=== PATIENT | male | born 1930 | race Caucasian/White ===

== ENCOUNTER 2017-01-22 15:38 | Inpatient (IN) | payer MEDICARE ==
[~2017-01-22] VITALS: Ht 182.9 cm; Wt 99.4 kg
--- NOTE | ~2017-01-22 | CR20 ---
[facility] A Service of [facility] RADIOLOGY TEXT RESULTS PATIENT: TENA UGALDE LOCATION: [facility] 331-01 : [birth year] UNIT #: [id number] AGE: [address]: Jerome Teague MD SEX: M ORDER DR: [id number] [facility] [address] [facility]. [place], [place] [address] [id number] I MR#: [id number] Acc #: [id number] NAME: TENA UGALDE. : 1930 SEX: M STUDY DATE/TIME: 01/22/2017 17:15 UNIT: CEDOF ROOM: 12504 STUDY DESCRIPTION: CR Ankle Min 3 Views Lt Attending Physician: Marla Serrano M.D. Ordering Physician: Ed Doctor [id number] [facility] Primary Care Physician: Merlin Dotson M.D. MEDICAL IMAGING REPORT This report is preliminary unless electronic signature is present EXAM 3 views left ankle. DATE 01/22/2017 HISTORY 86-year-old male with left ankle pain, swelling and deformity after falling today. FINDINGS There is severely comminuted fracture of the distal left tibial diametaphysis with posterior lateral angulation of the main fracture apex. There is also a mildly comminuted fracture of the distal left fibular diametaphysis with lateral angulation of the fracture apex. No ankle joint dislocation is seen. There is left lower extremity soft tissue swelling. Well-corticated chronic-appearing calcification is seen at the dorsum of the navicular bone. Base of fifth metatarsal appears intact. Multiple surgical rosaline are seen within the soft tissues of the left calf, presumably from vein graft harvesting, and calcific atherosclerotic changes are present. IMPRESSION 1. Comminuted fractures of the distal left tibia and fibular diametaphysis with lateral angulation of the fracture apex. Mild posterior angulation of the tibial fracture site. 2. No ankle joint dislocation. Dictated by... Cyndie Londono M.D. [facility] A Service [facility] RADIOLOGY TEXT RESULTS PATIENT: TENA UGALDE LOCATION: [facility] 331-01 : [birth year] UNIT #: [id number] AGE: [address]: Jerome Teague MD SEX: M ORDER DR: THIS IS AN ELECTRONICALLY VERIFIED REPORT Cyndie Londono M.D. at 01/23/2017 2:02 PM CHUCHO/brandon TD: 01/22/2017 23:54 JOB #: [id number] MEDICAL IMAGING REPORT Page 1 of 1 COPY
--- NOTE | ~2017-01-22 | OR ---
Unit #: [id number] #: [id number] Patient: TENA UGALDE [id number] [address] [address] [id number] I MR#: [id number] NAME: TENA UGALDE ROOM: 331 Date of Procedure: 01/23/2017 Admission Date: 01/22/2017 Surgeon: Luisa López M.D. : 1930 Attending Physician: Jerome Teague M.D. Primary Care Physician: Merlin Dotson M.D. OPERATIVE REPORT PREOPERATIVE DIAGNOSIS Left distal tibia and fibular fractures. POSTOPERATIVE DIAGNOSIS Left distal tibia and fibular fractures. DESCRIPTION OF PROCEDURE Closed reduction, short leg fiberglass cast application left lower extremity. ANESTHESIA None. COMPLICATIONS None. DESCRIPTION OF PROCEDURE With the patient supine at bedside and two nurses helping me, a closed reduction of the left leg was performed. A well-padded, well-molded short leg fiberglass cast was then applied with an appropriate three point mold. The patient tolerated the procedure well. We will check post reduction x-rays and make further plans. The patient most likely require rehabilitation placement since he lives alone and unable to weightbear on his left leg for a total of 2 months. Dictated by.Fauzia López M.D. RTH/modl TD: 01/23/2017 12:07 JOB #: [id number] Unit #: [id number] #: [id number] Patient: TENA UGALDE OPERATIVE REPORT Page 1 of 1 X Shayy López MD X PROCEDURE OPERATIVE NOTE
--- NOTE | ~2017-01-22 | CR72 ---
[facility] A Service of [facility] RADIOLOGY TEXT RESULTS PATIENT: TENA UGALDE LOCATION: [facility] : [birth year] UNIT #: [id number] AGE: [address]: MALACHI AVILEZ V SEX: M ORDER DR: [id number] [facility] [address] [facility] [place], [place] [address] [id number] I MR#: [id number] Acc #: [id number] NAME: TENA UGALDE : 1930 SEX: M STUDY DATE/TIME: 01/25/2017 13:27 UNIT: [address] ROOM: [facility] STUDY DESCRIPTION: CR Chest Single View Portable Attending Physician: Malachi Avilez M.D. Ordering Physician: Malachi Avilez M.D. Primary Care Physician: Merlin Dotson M.D. MEDICAL IMAGING REPORT This report is preliminary unless electronic signature is present EXAM AP portable chest 01/25/2017 HISTORY Shortness of breath since 01/24/2017. Previous history of stroke. Hypertension. Smoking history. COMPARISON AP portable chest 01/22/2017. FINDINGS Stable cardiac enlargement. Peripheral interstitial thickening is demonstrated in both lungs, greatest in the ipt-dk-cowcy lung zones, without significant change. No definite acute superimposed airspace disease is identified. No pleural effusion or pneumothorax is identified. No acute osseous abnormalities. IMPRESSION 1. Features of peripheral interstitial fibrosis in both lungs appear unchanged compared to the previous chest radiograph and correlated to the CT chest from 01/10/2016. 2. Stable cardiac enlargement. 3. No acute chest findings. 1. Dictated by... Cyndie Londono M.D. THIS IS AN ELECTRONICALLY VERIFIED REPORT Cyndie Londono M.D. at 01/27/2017 8:50 AM LLH/elsie [facility] A Service of [facility] RADIOLOGY TEXT RESULTS PATIENT: TENA UGALDE LOCATION: [facility] 331 : [birth year] UNIT #: [id number] AGE: [address]: MALACIH AVILEZ V SEX: M ORDER DR: TD: 01/25/2017 23:19 JOB #: [id number] MEDICAL IMAGING REPORT Page 1 of 1 COPY
--- NOTE | ~2017-01-22 | CR252 ---
[facility] A Service of [facility] RADIOLOGY TEXT RESULTS PATIENT: TENA UGALDE LOCATION: [facility] 331-01 : [birth year] UNIT #: [id number] AGE: [address]: Jerome Teague MD SEX: M ORDER DR: [id number] [facility] [address] [facility]. [place], [place] [address] [id number] I MR#: [id number] Acc #: [id number] NAME: TENA UGALDE : 1930 SEX: M STUDY DATE/TIME: 01/23/2017 8:01 UNIT: [address] ROOM: [facility] STUDY DESCRIPTION: CR Tibia and Fibula 2 Views Lt Attending Physician: Jerome Teague M.D. Ordering Physician: Jerome Teague M.D. Primary Care Physician: Merlin Dotson M.D. MEDICAL IMAGING REPORT This report is preliminary unless electronic signature is present EXAM Left tibia-fibula, 01/23 COMPARISON 01/20 INDICATION Pain for 1 day after falling out of a truck. Evaluate position of fractures in the fibula and tibia. FINDINGS Comparison to yesterday's study. AP and lateral views of the tibia and fibula were obtained. There is a plaster cast around the lower leg. There are distal shaft fractures involving the fibula and tibia. The tibial fracture is comminuted and there is mild lateral angulation. The fibular fracture is oblique and not comminuted. The tibial fracture is also somewhat dorsally angulated. In the proximal bones there appears to be a slightly displaced proximal fibular shaft fracture. IMPRESSION The amount of lateral angulation in the distal fibular and tibial fractures has been reduced slightly. The bones are in a cast now. There is also a proximal fibular fracture. Dictated by... Seth Gaspar M.D. THIS IS AN ELECTRONICALLY VERIFIED REPORT Seth Gaspar M.D. at 01/23/2017 12:13 PM MICHAEL/jorge l TD: 01/23/2017 11:25 JOB #: [id number] [facility] A Service of [facility] RADIOLOGY TEXT RESULTS PATIENT: ETNA UGALDE LOCATION: [facility] 331-01 : [birth year] UNIT #: [id number] AGE: [address]: Jerome Teague MD SEX: M ORDER DR: MEDICAL IMAGING REPORT Page 1 of 1 COPY
--- NOTE | ~2017-01-22 | CR72 ---
[facility] A Service of [facility] RADIOLOGY TEXT RESULTS PATIENT: TENA UGALDE LOCATION: [facility] : [birth year] UNIT #: [id number] AGE: [address]: Jerome Teague MD SEX: M ORDER DR: [id number] [facility] [address] [facility]. [place], [place] [address] [id number] I MR#: [id number] Acc #: [id number] NAME: TENA UGALDE. : 1930 SEX: M STUDY DATE/TIME: 01/22/2017 20:10 UNIT: [address] ROOM: [facility] STUDY DESCRIPTION: CR Chest Single View Portable Attending Physician: Marla Serrano M.D. Ordering Physician: Ed Doctor [id number] [facility] Primary Care Physician: Merlin Dotson M.D. MEDICAL IMAGING REPORT This report is preliminary unless electronic signature is present EXAM AP portable chest DATE 01/22/2017 HISTORY Preoperative evaluation for ORIF of left tibia and fibula. 47-year smoking history. COMPARISON AP portable chest 10/05/2006. FINDINGS There is moderate cardiac enlargement which appears increased since the 2006 study. Emphysematous changes are present. Suspected interstitial fibrotic changes in the bilateral fwf-ln-wvhyp lung zones, corresponding to CT chest from 01/20/2016. No dense lung consolidations are identified. No pleural effusion or pneumothorax is seen. Calcification is seen within the thoracic aorta. No displaced rib fractures identified. IMPRESSION 1. Peripheral interstitial thickening in the ses-vu-hymom lung zones thought to represent changes of interstitial fibrosis which are demonstrated to better advantage on the CT chest from 01/10/2016 2. Emphysema. 3. Moderate cardiomegaly, new or increased from 10/05/2006. 4. No acute chest findings. Dictated by... Cyndie Londono M.D. THIS IS AN ELECTRONICALLY VERIFIED REPORT [facility] A Service of [facility] RADIOLOGY TEXT RESULTS PATIENT: TENA UGALDE LOCATION: [facility] : [birth year] UNIT #: [id number] AGE: [address]: Jerome Teague MD SEX: M ORDER DR: Cyndie Londono M.D. at 01/23/2017 2:03 PM CHUCHO/brandon TD: 01/23/2017 03:58 JOB #: [id number] MEDICAL IMAGING REPORT Page 1 of 1 COPY
--- NOTE | ~2017-01-22 | CO ---
Unit #: [id number] #: [id number] Patient: TENA UGALDE [id number] [address] [place], [place] [address] [id number] I MR#: [id number] NAME: TENA UGALDE. ROOM: 331 Age: 86 Sex: M Admission Date: 01/22/2017 : 1930 Attending Physician: José Miguel Ball M.D. Primary Care Physician: Merlin Dotson M.D. Consultation Date: 01/23/2017 CONSULTATION REPORT CHIEF COMPLAINT Left leg injury. HISTORY OF PRESENT ILLNESS The patient is an 86-year-old male, who fell while getting out of his car yesterday sustaining a comminuted fracture of his left distal tibia and a fracture of his distal fibula. He has 18 degrees of extra-articular varus. Orthopedic consultation is requested. PAST MEDICAL HISTORY Remarkable for previous left leg arterial bypass graft for arterial peripheral vascular disease as well as stroke resulting in left-sided weakness. He also has a history of deep venous thrombosis, requiring Coumadin. Additional medical problems include hypothyroidism, congestive heart failure, coronary artery disease. HOME MEDICATIONS Coumadin, potassium, Lasix, Zoloft, Coreg, and Imdur. ALLERGIES Penicillin. PAST SURGICAL HISTORY Abdominal aortic aneurysm repair, left leg arterial bypass graft, inguinal hernia repair, hemorrhoidectomy, and cataracts. SOCIAL HISTORY The patient is a nonsmoker and nondrinker. He lives alone. PHYSICAL EXAMINATION This is a well-developed, well-nourished elderly male, who is alert and oriented. He is cooperative throughout the exam. Examination of the left leg shows the skin to be intact. He has mild swelling. He has an obvious varus deformity of the left lower extremity. He is point tender over the distal tibia and fibula. I am unable to palpate pulses. Sensation is intact. Motor exam is grossly intact. He does have some venous stasis changes. DIAGNOSTIC STUDIES IMAGING STUDIES: AP and lateral views of the left tibia and left ankle demonstrate 18 degrees of extra-articular varus. There was a comminuted fracture of the distal tibia, which is 4 cm above the ankle mortise. There was a butterfly fragment with marked comminution seen both an AP and lateral views. There is no significant translation on the knee x-ray. Unit #: [id number] #: [id number] Patient: TENA UGALDE There was also what appears to be an acute fracture of the proximal fibula as well. It is difficult to tell whether this is old or acute actually. IMPRESSION Comminuted left distal tibial and fibular fractures displaced in the varus. PLAN 1. Given the patient's multiple medical problems to include anticoagulation, coronary artery disease, peripheral vascular disease, requiring arterial bypass graft and left hemiparesis, I would recommend close treatment of this fracture. 2. We will therefore proceed with close reduction, short leg cast application at the bedside. The patient understands risks of this procedure to include possible further manipulation and even operative intervention, but we will try to avoid operative intervention at all cost. The patient will most likely require nonweightbearing status for 2 months and require cast immobilization for 2 months. Dictated byKem Tatum/royer TD: 01/23/2017 11:35 JOB #: [id number] CONSULTATION REPORT Page 1 of 1 X Shayy López MD X CONSULTATION REPORT
--- NOTE | ~2017-01-22 | DS ---
Unit #: [id number] #: [id number] Patient: TENA UGALDE [id number] [address] [place], [place] [address] [id number] I MR#: [id number] NAME: TENA UGALDE. ROOM: 331 Age: 86 Sex: M Admission Date: 01/22/2017 : 1930 Discharge Date: 01/26/2017 Attending Physician: José Migule Ball M.D. Primary Care Physician: Merlin Dotson M.D. 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 He was found to have a left distal tibial and fibula fracture and underwent closed reduction, short-leg fiberglass cast application to the left lower extremity. The patient is nonweightbearing to the left leg and planned to be transferred to a long term facility for short-term rehabilitation. He has a history significant for depression during his stay. His Zoloft was discontinued, and the patient was started on Wellbutrin 150 mg b.i.d. He has a history significant for DVT and has been on anticoagulation with Coumadin. His INR is currently subtherapeutic with INR of 1.6. The patient will continue with Lovenox until Coumadin is therapeutic. Cardiomyopathy - Continue Coreg and Imdur. 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 The patient was started on Benadryl and given a dose of steroids. Also, the patient's daughter felt that he may have a smell to his urine. Urinalysis was evaluated. Can recheck urine at short-term rehab facility. Currently no antibiotics started. Recent urinalysis done on the demonstrates no signs of infection. DISCHARGE MEDICATIONS 1. Colace 100 mg p.o. b.i.d. 2. Furosemide 20 mg p.o. b.i.d. 3. Humibid long acting 600 mg p.o. b.i.d. 4. Vitamin B complex tab 1 p.o. once daily. 5. Hydrocodone 5/325 mg p.o. t.i.d. p.r.n. 6. Calcium with vitamin D p.o. t.i.d. 7. Potassium chloride 10 mEq p.o. b.i.d. 8. Isosorbide 15 mg p.o. once daily. 9. Albuterol Mini-Neb b.i.d. 10. Lovenox 40 mg subcu once daily until INR therapeutic; after INR is above 2, can discontinue Lovenox. 11. Coumadin 7.5 mg on Mondays, Tuesdays, Wednesdays and . 12. Coumadin 3.37 mg on Fridays, Saturdays and Sundays. 13. Wellbutrin 150 mg p.o. b.i.d. Unit #: [id number] #: [id number] Patient: TENA UGALDE 14. Benadryl 25 mg p.o. b.i.d. p.r.n. itching. 15. Coreg 6.25 mg p.o. b.i.d. 16. Aleve 220 mg p.o. b.i.d. p.r.n. pain. DISCHARGE INSTRUCTIONS 1. The patient will be transferred to a short-term rehab facility for physical therapy. 2. He is nonweightbearing to the left leg. 3. He is to follow up as an outpatient with orthopedist, Dr. López. 4. The patient has allergic dermatitis, allergy to parabens, preservative in creams and should be avoided. 5. Discharge to long term facility. Dictated by... Kem Wright/park TD: 01/26/2017 09:53 JOB #: [id number] DISCHARGE SUMMARY Page 1 of 1 X X DISCHARGE SUMMARY
--- NOTE | ~2017-01-22 | CR17 ---
[facility] A Service of [facility] RADIOLOGY TEXT RESULTS PATIENT: TENA UGALDE LOCATION: [facility] 331- : [birth year] UNIT #: [id number] AGE: [address]: LOKESH AVILEZUJ V SEX: M ORDER DR: [id number] [facility] [address] [facility]. [place], [place] [address] [id number] I MR#: [id number] Acc #: [id number] NAME: TENA UGALDE. : 1930 SEX: M STUDY DATE/TIME: 01/23/2017 14:57 UNIT: [address] ROOM: [facility] STUDY DESCRIPTION: CR Ankle 2 Views Lt Attending Physician: Jerome Teague M.D. Ordering Physician: Jerome Teague M.D. Primary Care Physician: Merlin Dotson M.D. MEDICAL IMAGING REPORT This report is preliminary unless electronic signature is present EXAM Left ankle INDICATION Evaluate position of fracture after casting. Distal tibia fracture. FINDINGS AP and lateral views of the ankle were obtained. A fiberglass cast is present around the ankle. There is a comminuted fracture involving the distal third of the tibia with mild dorsal angulation and there is also a fracture through the distal tibial shaft which is slightly angulated as well. There has been some improvement in the alignment as compared with the previous study, particularly on the AP view. Dictated by... Seth Gaspar M.D. THIS IS AN ELECTRONICALLY VERIFIED REPORT Seth Gaspar M.D. at 01/24/2017 7:06 AM MICHAEL/jorge l TD: 01/23/2017 17:03 JOB #: [id number] MEDICAL IMAGING REPORT Page 1 of 1 COPY
--- NOTE | ~2017-01-22 | CR252 ---
[facility] A Service of [facility] RADIOLOGY TEXT RESULTS PATIENT: TENA UGALDE LOCATION: [facility] 331-01 : [birth year] UNIT #: [id number] AGE: [address]: Jerome Teague MD SEX: M ORDER DR: [id number] [facility] [address] [facility]. [place], [place] [address] [id number] I MR#: [id number] Acc #: [id number] NAME: TENA UGALDE. : 1930 SEX: M STUDY DATE/TIME: 01/22/2017 17:15 UNIT: CEDOF ROOM: [id number] STUDY DESCRIPTION: CR Tibia and Fibula 2 Views Lt Attending Physician: Marla Serrano M.D. Ordering Physician: Irving Lehman M.D. Primary Care Physician: Merlin Dotson M.D. MEDICAL IMAGING REPORT This report is preliminary unless electronic signature is present EXAMINATION Two views left tibia and fibula. DATE 01/22/2017 HISTORY Fell today with left tibia/fibula pain, swelling and deformity. FINDINGS There is a severely comminuted fracture of the distal left tibial diametaphysis with mild posterior and lateral angulation of the fracture apex. The proximal to mid tibial shaft appears intact, the knee joint maintains satisfactory alignment. There is a comminuted fracture of the distal left fibula diametaphysis with lateral angulation of the fracture apex. There is an obliquely oriented fracture of the proximal left fibular diametaphysis. Presumed vein graft harvesting surgical clips in place with vascular calcifications noted. Osteopenic changes are present. IMPRESSION 1. Severely comminuted fracture of the distal left tibial diametaphysis with posterior and lateral angulation of the apex. 2. Comminuted fracture of the distal left fibular diametaphysis with lateral angulation of the apex. 3. Obliquely origin minimally-displaced fracture of the proximal left fibular diametaphysis. 4. Knee and ankle joints maintain satisfactory alignment. No dislocation. [facility] A Service [facility] RADIOLOGY TEXT RESULTS PATIENT: TENA UGALDE LOCATION: [facility] 331-01 : [birth year] UNIT #: [id number] AGE: [address]: Jerome Teague MD SEX: M ORDER DR: Dictated by... Cyndie Londono M.D. THIS IS AN ELECTRONICALLY VERIFIED REPORT Cyndie Londono M.D. at 01/23/2017 2:02 PM CHUCHO/edwina TD: 01/22/2017 23:53 JOB #: [id number] MEDICAL IMAGING REPORT Page 1 of 1 COPY
--- NOTE | ~2017-01-22 | HP ---
Unit #: [id number] #: [id number] Patient: TENA UGALDE [id number] [place], [place] [address] [id number] I MR#: [id number] NAME: TENA UGALDE ROOM: 331 Age: 86 Sex: M Admission Date: 01/22/2017 : 1930 Attending Physician: Jerome Teague M.D. Primary Care Physician: Merlin Dotson M.D. HISTORY AND PHYSICAL CHIEF COMPLAINT Fall, left ankle. HISTORY OF PRESENT ILLNESS The patient is an 86-year-old male with past medical history of hypertension, hyperlipidemia, coronary artery disease, CHF, DVT, chronic anticoagulation, abdominal aortic aneurysm and peripheral vascular disease who presented to the emergency department for evaluation of the above. The patient states that he was in his usual state of health until the day of admission when he was getting out of his truck and his foot and ankle got caught in the truck. He fell onto his left lower extremity. He experienced the immediate onset of left ankle pain. He was brought to the emergency department for evaluation and further treatment. The patient denies any chest pain. No palpitations. No fever. No cough or cold symptoms. No vomiting or diarrhea. He states that he has been taking all of his medications as prescribed. He has gained some weight over the past several months since moving into [facility]. Family attributes the weight gain to no longer having to cook for himself. The patient had a cardiac catheterization in 2011 at [facility]. He had a stress test prior to that time. He sees Dr. Bell as an outpatient but has not seen him for over a year. In the emergency department initial pulse and blood pressure were 72 and 131/60 respectively. X-rays show fractures of the left distal tibia and fibula. He is being admitted to [facility] for evaluation and further treatment. PAST MEDICAL HISTORY 1. Admission to [facility] January 08 through January 11, 2016 for rhabdomyolysis and fall. 2. Cerebrovascular accident with residual left-sided weakness. 3. Congestive heart failure with unknown ejection fraction, followed by Dr. Bell. 4. Coronary artery disease. 5. Hypertension. 6. Hyperlipidemia. 7. History of DVT. 8. Chronic anticoagulation with Coumadin. 9. Hypothyroidism. 10. Abdominal aortic aneurysm status post repair. 11. Peripheral vascular disease status post lower extremity bypass. Unit #: [id number] #: [id number] Patient: TENA UGALDE PAST SURGICAL HISTORY 1. Cardiac catheterization in 2011 (no records). 2. Lower extremity bypass. 3. Abdominal aortic aneurysm repair. 4. Hemorrhoid surgery. 5. Cataract surgery. 6. Bilateral inguinal hernia repair. SOCIAL HISTORY The patient lives at [facility]. There is no tobacco or alcohol use. He typically is in, what sounds like, a scooter. He still drives. CODE STATUS The patient's code status is a [id number]-[id number]. FAMILY HISTORY Noncontributory secondary to age. ALLERGIES Penicillin, iodine, IV dye. HOME MEDICATIONS Potassium, Lasix, Coumadin, carvedilol, Zoloft, Imdur, levothyroxine, Lipitor, Colace. Home medications will need to be reviewed and verified. REVIEW OF SYSTEMS A complete review of systems is negative except as indicated in the HPI. The patient states that his INR was last checked on and was 1.7. His dose was increased for one day and then back to normal. PHYSICAL EXAMINATION VITAL SIGNS: Temperature is 98.2, pulse 72, respirations 18, blood pressure 131/60, oxygen saturation 90% on room air. GENERAL: The patient is a male who is awake and alert, in no acute distress. HEENT: The head is atraumatic. Mucous membranes are moist. NECK: Supple. Trachea is midline. CARDIOVASCULAR: Regular rate and rhythm. RESPIRATORY: Lungs are clear to auscultation bilaterally with no increased work of breathing. ABDOMEN: Soft, nontender with bowel sounds present in all 4 quadrants. EXTREMITIES: The patient does have 1+ edema of bilateral lower extremities. Hyperpigmentation is also noted consistent with chronic venous stasis. There is an ice pack about the left distal leg. He is tender in this region. NEUROLOGIC: The patient is awake and alert. He follows commands. He is hard of hearing. PSYCHIATRIC: Mood and affect are normal. The patient is cooperative. SKIN: Skin of examined areas is warm and dry. DIAGNOSTIC TESTS LABORATORY: Labs are all pending currently. IMAGING: Left ankle x-ray shows fractures involving the distal tibia and fibula. ASSESSMENT Unit #: [id number] #: [id number] Patient: TENA UGALDE 1. The patient is an 86-year-old male with fracture of the left tibia and fibula. The patient's revised Michelle Cardiac Risk Index is consistent with at least a 5.4% rate of cardiac , nonfatal myocardial infarction, nonfatal cardiac arrest based on history of heart failure, ischemic heart disease and cerebrovascular disease. Labs are pending. 2. Status post fall. The patient denies loss of consciousness. He denies hitting his head. 3. Hypertension. 4. Hyperlipidemia. 5. Coronary artery disease. 6. Congestive heart failure with unknown ejection fraction. 7. History of DVT. 8. Chronic anticoagulation with Coumadin. 9. Abdominal aortic aneurysm status post repair. 10. Peripheral vascular disease status post lower extremity stenting. 11. Hypothyroidism. PLAN 1. Admit to intermediate level. 2. Healthy heart diet. 3. NPO after midnight. 4. Bedrest. 5. Fall precautions. 6. Morphine p.r.n. 7. Tylenol p.r.n. 8. Follow up lab results, including INR. The patient may need vitamin K and/or FFP. 9. EKG and chest x-ray as part of preoperative evaluation. 10. Check urinalysis with culture and sensitivity. 11. Check TSH. 12. Check CPK. 13. Consult Dr. López regarding tibia/fibula fracture. 14. Consult Dr. Courtney for cardiac clearance. 15. Get cardiac cath report from [facility]. 16. Repeat labs in the morning, including INR. 17. Additional workup and consultants based on above. 18. Regarding code status, the patient is a [id number]. Dictated by Marla Serrano M.D. JONAH/park TD: 01/23/2017 09:12 JOB #: [id number] Unit #: [id number] #: [id number] Patient: TENA UGALDE HISTORY AND PHYSICAL Page 1 of 1 X Marla Serrano MD HISTORY AND PHYSICAL
--- NOTE | ~2017-01-22 | EKG ---
PATIENT: TENA UGALDE UNIT #: [id number] Ventricular Rate: 65 BPM Atrial Rate: 65 BPM P-R Interval: 168 ms QRS Duration: 116 ms Q-T Interval: 452 ms QTC Calculation(Bezet): 470 ms P [place]: 26 degrees Calculated R [place]: 10 degrees Calculated T [place]: -9 degrees Diagnosis Line: Normal sinus rhythm Diagnosis Line: Incomplete right bundle branch block Diagnosis Line: ST and T wave abnormality, consider inferior Diagnosis Line: ischemia Diagnosis Line: Prolonged QT Diagnosis Line: Abnormal ECG Diagnosis Line: When compared with ECG of 10-JAN-2016 12:22, Diagnosis Line: Incomplete right bundle branch block is now Diagnosis Line: Present Diagnosis Line: Confirmed by JASMYNE PINK MD ([id number]) on 01/23/2017 Diagnosis Line: 5:59:26 PM INTERPRETING MD: JOESPH ESPARZA
[~2017-01-22 15:38] MED LIST: ASPIRIN PO; B COMPLEX/FOLIC1 TAB PO; CENTRUM240 ML PO; COREG PO; COREG12.5 MG PO; COUMADIN7.5 MG PO; DOCUSATE SODIU100 MG PO; FOLIC ACID PO; IMDUR PO; IMDUR-ER30 M2 PO; K-DUR10 MEQ PO; KCL PO; LASIX PO; LASIX20 MG PO; LEVOTHYROXINE175 MCG PO; LIPITOR PO; LIPITOR20 MG PO; MULTI VITAMIN1 EACH PO; SYNTHROID PO; VITAMIN B; ZOLOFT50 MG PO; [UNRECOGNIZED DRUG - OTHER]
[2017-01-22] MEDS ORDERED: COREG PO ×2 (19:11)
[2017-01-22 19:55] LABS: BASOPHIL% 0.5 % (0-2.5); EOSINOPHIL# 0.3 X10e3 (0-0.7); EOSINOPHIL% 3.7 % (0.0-7.0); HEMATOCRIT 43.7 % (38.0-50.0); HEMOGLOBIN 14.4 gm/dL (13.0-16.0); LYMPHOCYTE# 0.9 X10e3 (1.0-3.5); LYMPHOCYTE% 12.3 % (17.0-45.0); MEAN CORPUSCULAR HGB CONC 32.9 g/dL (30-36); MEAN PLATELET VOLUME 7.6 FL (6.5-11.5); MONOCYTE# 0.6 X10e3 (0-1.0); MONOCYTE% 8.2 % (3.0-12.0); NEUTROPHIL# 5.7 X10e3 (1.5-7.1); NEUTROPHIL% 75.3 % (40-75); PLATELET COUNT 120 X10e3 (140-420); RED CELL DISTRIBUTION WIDTH 14.4 % (11.0-15.5); WHITE BLOOD COUNT 7.6 X10e3 (4.0-10.5)
[2017-01-22 19:59] LABS: DIFF IND NO
[2017-01-22 20:06] LABS: INR 1.5; PROTHROMBIN TIME (PATIENT) 16.1 SECONDS (10.0-11.7)
[2017-01-22 20:13] LABS: ALBUMIN SERUM 4.2 g/dL (3.5-5.0); BILIRUBIN,TOTAL 0.8 mg/dL (0.2-2.0); CREATININE SERUM 1.1 mg/dL (0.6-1.4); GLOM FILT RATE Estimated 60.1 mL/min (>60); PROTEIN TOTAL SERUM 7.4 g/dL (6.0-8.3)
[2017-01-22] MEDS ORDERED: COUMADIN PO (23:42)
[2017-01-23 01:25] LABS: INR 1.6; PROTHROMBIN TIME (PATIENT) 17.2 SECONDS (10.0-11.7)
[2017-01-23 03:20] LABS: BASOPHIL% 0.5 % (0-2.5); EOSINOPHIL# 0.4 X10e3 (0-0.7); EOSINOPHIL% 5.9 % (0.0-7.0); HEMATOCRIT 42.2 % (38.0-50.0); HEMOGLOBIN 13.8 gm/dL (13.0-16.0); LYMPHOCYTE# 0.9 X10e3 (1.0-3.5); LYMPHOCYTE% 12.5 % (17.0-45.0); MEAN CELL VOLUME 91.4 FL (83-96); MEAN CORPUSCULAR HGB CONC 32.8 g/dL (30-36); MEAN PLATELET VOLUME 7.2 FL (6.5-11.5); MONOCYTE# 0.8 X10e3 (0-1.0); MONOCYTE% 10.8 % (3.0-12.0); NEUTROPHIL# 4.9 X10e3 (1.5-7.1); NEUTROPHIL% 70.3 % (40-75); PLATELET COUNT 114 X10e3 (140-420); RED BLOOD COUNT 4.62 X10e (3.90-5.60); RED CELL DISTRIBUTION WIDTH 14.5 % (11.0-15.5)
[2017-01-23 03:43] LABS: DIFF IND NO
[2017-01-23 03:51] LABS: ALBUMIN SERUM 3.8 g/dL (3.5-5.0); BILIRUBIN,TOTAL 1.1 mg/dL (0.2-2.0); CALCIUM SERUM 8.6 mg/dL (8.4-10.2); GLOM FILT RATE Estimated 67.4 mL/min (>60); PROTEIN TOTAL SERUM 6.6 g/dL (6.0-8.3)
[2017-01-23 05:15] LABS: URINE SOURCE CLEAN CATCH
[2017-01-23 05:44] LABS: URINE APPEARANCE CLEAR; URINE BILIRUBIN NEG (NEG); URINE BLOOD NEG (NEG); URINE COLOR YELLOW; URINE GLUCOSE NEG (NEG); URINE KETONE NEG (NEG); URINE LEUKOCYTE ESTERASE NEG (NEG); URINE NITRATE NEG (NEG); URINE PH 5.5 (5-8); URINE PROTEIN NEG (NEG); URINE SPECIFIC GRAVITY 1.019 (1.003-1.035); URINE UROBILINOGEN 0.2 MG/DL (NEG)
[2017-01-25 05:07] LABS: INR 1.2; PROTHROMBIN TIME (PATIENT) 13.3 SECONDS (10.0-11.7)
[2017-01-26 06:12] LABS: INR 1.5; PROTHROMBIN TIME (PATIENT) 16.2 SECONDS (10.0-11.7)
[2017-01-26 12:42] LABS: URINE APPEARANCE CLEAR; URINE BILIRUBIN NEG (NEG); URINE BLOOD NEG (NEG); URINE COLOR DK YELLOW; URINE GLUCOSE NEG (NEG); URINE KETONE NEG (NEG); URINE LEUKOCYTE ESTERASE NEG (NEG); URINE NITRATE NEG (NEG); URINE PH 5.5 (5-8); URINE PROTEIN NEG (NEG); URINE SPECIFIC GRAVITY 1.025 (1.003-1.035)
== END 2017-01-26 15:47 | DRG 563 ==
LOC: CFTX 15:38 → CED 15:38 → CFTX 16:29 → CEDOF 19:05 → CED 19:37 → CEDOF 23:59 → C3A PCU 23:59
PROVIDERS: Family Medicine; Internal Medicine; Nurse Practitioner
PROC: 0QSHXZZ Reposition Left Tibia, External Approach (ICD-10-PCS; principal; 2017-01-23)
PROC: 0QSKXZZ Reposition Left Fibula, External Approach (ICD-10-PCS; 2017-01-23)
DX: S82.252A Displaced comminuted fracture of shaft of left tibia, initial encounter for closed fracture (principal); I11.0 Hypertensive heart disease with heart failure; I50.9 Heart failure, unspecified; I42.9 Cardiomyopathy, unspecified; S82.452A Displaced comminuted fracture of shaft of left fibula, initial encounter for closed fracture; W17.89XA Other fall from one level to another, initial encounter; E03.9 Hypothyroidism, unspecified; E78.5 Hyperlipidemia, unspecified; I25.10 Atherosclerotic heart disease of native coronary artery without angina pectoris; F32.9 Major depressive disorder, single episode, unspecified; Z86.718 Personal history of other venous thrombosis and embolism; Z79.01 Long term (current) use of anticoagulants; L23.89 Allergic contact dermatitis due to other agents; Z66 Do not resuscitate; Z91.041 Radiographic dye allergy status; Z88.0 Allergy status to penicillin
CPT/HCPCS: 71010; 73590; 73600; 73610; 80053; 81003; 82550; 85025; 85610; 87086; 87088; 87186; 93005; 94640; 94760; 97110; 97161; 97165; 97530; 97535; 99285; G8978-GP; G8979-GP; G8980-GP; G8987-GO; G8988-GO; G8989-GO; J1650; J2270; J2920

== ENCOUNTER 2017-01-29 04:44 | Inpatient (IN) | payer MEDICARE ==
[~2017-01-29] VITALS: Ht 185.4 cm; Wt 110.0 kg
--- NOTE | ~2017-01-29 | DS ---
Unit #: [id number] #: [id number] Patient: TENA UGALDE [id number] [address] [address] [id number] I MR#: [id number] NAME: TENA UGALDE. ROOM: 564 Age: 86 Sex: M Admission Date: 01/29/2017 : 1930 Discharge Date: 02/08/2017 Attending Physician: Adam Cooper M.D. Primary Care Physician: Merlin Dotson M.D. DISCHARGE SUMMARY Date of discharge to hospice service 02/08/2017. HISTORY OF PRESENT ILLNESS The patient is a very pleasant 86-year-old male, who presented for subacute rehab secondary to dyspnea and multifactorial respiratory failure. Initial chest x-ray revealed infiltrate in the right mid lung and left lower lung. The patient was started on IV antibiotics. His O2 requirement increased. He became acutely hypoxic and it was noted the patient did have significant aspiration, appropriate dietary modifications, and/or speech therapy recommendations were made. The patient ultimately underwent 2D echocardiogram as well which did reveal both chronic diastolic as well as systolic dysfunction. He was aggressively diuresed. He showed signs consistent with alkalosis as well as worsening renal function. Subsequently at that point in time, secondary to worsening renal function, poor respiratory status, as well as family's desire not for the patient to have PEG tube placement, decision was made at that point in time, for DNR status as well as consultation will be placed to hospice services. After extensive discussion review with the patient's family, ultimately, decision was made for patient to be transferred to hospice scattered bed for ongoing care. FINAL DISCHARGE DIAGNOSES 1. Acute hypoxic respiratory failure. 2. Pneumonia. 3. Aspiration. 4. Dysphagia. 5. Cerebrovascular accident history. 6. Left-sided weakness. 7. Congestive heart failure, diastolic/systolic present on admission. 8. Coronary artery disease history. 9. Hypertension. 10. Hyperlipidemia. 11. Prior history of deep venous thrombosis. 12. Chronic anticoagulation. 13. Hypothyroidism. 14. Prior history of abdominal aortic aneurysm repair. DISCHARGE DISPOSITION Hospice scattered bed. Dictated by... Unit #: [id number] #: [id number] Patient: TENA UGALDE Jose Medeiros M.D. PALOMO/royer TD: 02/14/2017 06:36 JOB #: [id number] DISCHARGE SUMMARY Page 1 of 1 X Jose Medeiros MD DISCHARGE SUMMARY
--- NOTE | ~2017-01-29 | CR252 ---
[facility] A Service of [facility] RADIOLOGY TEXT RESULTS PATIENT: TENA UGALDE LOCATION: [facility] 564-01 : [birth year] UNIT #: [id number] AGE: [address]: Adam Cooper MD SEX: M ORDER DR: [id number] [facility] [address] [place], [place] [address] [id number] I MR#: [id number] Acc #: [id number] NAME: TENA UGALDE. : 1930 SEX: M STUDY DATE/TIME: 01/30/2017 10:34 UNIT: [facility] ROOM: [facility] STUDY DESCRIPTION: CR Tibia and Fibula 2 Views Lt Attending Physician: Adam Cooper M.D. Ordering Physician: Adam Cooper M.D. Primary Care Physician: Merlin Dotson M.D. MEDICAL IMAGING REPORT This report is preliminary unless electronic signature is present EXAM Left tibia-fibula, 2 views COMPARISON January 23, 2017. INDICATION 86-year-old male. Follow up of left tib-fib fracture. Left kwgcv-ieo-ptuv extremity pain for 1 week. FINDINGS Surgical clips are again noted in the medial aspect of the urnxy-wqt-sqcj left lower extremity. There is persistent fracture seen at the proximal fibular shaft. This is mildly comminuted without significant displacement. No significant bony healing is seen. There is an acute approximately 75% displaced and foreshortened fracture of the distal fibula which appears to have changed orientation from comparison. No definite bony healing is seen although evaluation is limited due to overlapping cast material. There is a comminuted fracture of the distal tibial shaft as well and there is associated angulation which appears increased from comparison. Please note that the distal-most tibia and fibula are excluded from field of view on the lateral projection. IMPRESSION Exam is limited by overlapping cast material as well as exclusion of the distal-most tibia and fibula on 1 of the orthogonal views. There are persistent comminuted fractures of the distal tibia and fibula which appear to be becoming more angulated. There is a persistent mildly comminuted fracture of the proximal fibular shaft as well, without significant displacement. No definite bony healing is seen. No new fractures are seen. [facility]. [facility] A Service of [facility] RADIOLOGY TEXT RESULTS PATIENT: TENA UGALDE LOCATION: [facility] 564-01 : [birth year] UNIT #: [id number] AGE: [address]: Adam Cooper MD SEX: M ORDER DR: Dictated by... Deuce Zayas M.D. THIS IS AN ELECTRONICALLY VERIFIED REPORT Deuce Zayas M.D. at 02/08/2017 9:20 PM RONY/lobo TD: 01/31/2017 08:19 JOB #: [id number] MEDICAL IMAGING REPORT Page 1 of 1 COPY
--- NOTE | ~2017-01-29 | CR72 ---
[facility] A Service of [facility] & [facility] RADIOLOGY TEXT RESULTS PATIENT: TENA UGALDE LOCATION: [facility] 564-01 : [birth year] UNIT #: [id number] AGE: [address]: Adam Cooper MD SEX: M ORDER DR: [id number] [facility] [address]. [place], [place] [address] [id number] I MR#: [id number] Acc #: [id number] NAME: TENA UGALDE. : 1930 SEX: M STUDY DATE/TIME: 01/30/2017 9:56 UNIT: [facility] ROOM: [facility] STUDY DESCRIPTION: CR Chest Single View Portable Attending Physician: Adam Cooper M.D. Ordering Physician: Mata Patel M.D. Primary Care Physician: Merlin Dotson M.D. MEDICAL IMAGING REPORT This report is preliminary unless electronic signature is present EXAM Portable chest INDICATION Shortness of breath for 4 days. COMPARISON 01/29/2017 FINDINGS Interval worsening airspace infiltrates bilaterally. Heart size stable. IMPRESSION Interval worsening of bilateral infiltrates. Dictated by... Turner Potter M.D. THIS IS AN ELECTRONICALLY VERIFIED REPORT Turner Potter M.D. at 01/31/2017 7:34 AM ARS/juanita TD: 01/31/2017 06:57 JOB #: [id number] MEDICAL IMAGING REPORT Page 1 of 1 COPY
--- NOTE | ~2017-01-29 | EKG ---
PATIENT: TENA UGALDE UNIT #: [id number] Ventricular Rate: 84 BPM Atrial Rate: 84 BPM P-R Interval: 152 ms QRS Duration: 126 ms Q-T Interval: 404 ms QTC Calculation(Bezet): 477 ms P [place]: 39 degrees Calculated R [place]: 30 degrees Calculated T [place]: -6 degrees Diagnosis Line: Normal sinus rhythm Diagnosis Line: Right bundle branch block Diagnosis Line: Abnormal ECG Diagnosis Line: No previous ECGs available Diagnosis Line: Confirmed by HANNAH RIVERA MD ([id number]) on Diagnosis Line: 01/31/2017 4:43:59 PM INTERPRETING MD: JANINA
--- NOTE | ~2017-01-29 | CR252 ---
[facility] A Service of [facility] RADIOLOGY TEXT RESULTS PATIENT: TENA UGALDE LOCATION: [facility] 564-01 : [birth year] UNIT #: [id number] AGE: [address]: Adam Cooper MD SEX: M ORDER DR: [id number] [facility] [address] [place], [place] [address] [id number] I MR#: [id number] Acc #: [id number] NAME: TENA UGALDE : 1930 SEX: M STUDY DATE/TIME: 02/03/2017 14:37 UNIT: [facility] ROOM: [facility] STUDY DESCRIPTION: CR Tibia and Fibula 2 Views Lt Attending Physician: Adam Cooper M.D. Ordering Physician: Luisa López M.D. Primary Care Physician: Merlin Dotson M.D. MEDICAL IMAGING REPORT This report is preliminary unless electronic signature is present EXAM Left lower leg. HISTORY 86-year-old male; pain left lower leg since 01/29. Fell. COMPARISON 01/30/2017 FINDINGS 2 views of the left lower leg demonstrate a mildly comminuted oblique fracture, distal tibial and fibular metaphysis, as well as a mildly comminuted proximal fibular shaft fracture. There is mild valgus angulation and mild displacement which may be slightly increased from 01/30/2017. Soft tissue swelling noted. Extensive arterial vascular calcifications noted, as well as multiple vascular clips. IMPRESSION Mildly comminuted and angulated distal tibial and fibular shaft fractures with slightly increased valgus angulation and medial displacement relative to the 01/30/2017 study. Also demonstrated is a mildly comminuted oblique fracture of the proximal fibular shaft compatible with a Maisonneuve-type fracture. Dictated by... Serena Potter M.D. THIS IS AN ELECTRONICALLY VERIFIED REPORT Serena Potter M.D. at 02/04/2017 6:53 PM Bee TD: 02/03/2017 18:45 [facility] A Service of [facility] RADIOLOGY TEXT RESULTS PATIENT: TENA UGALDE [facility]: [facility] 564-01 : [birth year] UNIT #: [id number] AGE: [address]: Adam Cooper MD SEX: M ORDER DR: MARTITA #: [id number] MEDICAL IMAGING REPORT Page 1 of 1 COPY
--- NOTE | ~2017-01-29 | CO ---
Unit #: [id number] #: [id number] Patient: TENA UGALDE [id number] [address] [place], [place] [address] [id number] I MR#: [id number] NAME: TENA UGALDE. ROOM: [facility] Age: 86 Sex: M Admission Date: 01/29/2017 : 1930 Attending Physician: Adam Cooper M.D. Primary Care Physician: Merlin Dotson M.D. Consultation Date: 01/29/2017 CONSULTATION REPORT CHIEF COMPLAINT Shortness of breath. REASON FOR CONSULTATION Critical care management and respiratory failure. HISTORY OF PRESENT ILLNESS This patient basically is an 86-year-old male who has a past medical history significant for congestive heart failure, hypertension, DVT, hypothyroidism, chronic anticoagulation, abdominal aortic aneurysm, peripheral vascular disease and presents with a complaint of shortness of breath. He was admitted to the hospital with an impression of pneumonia and was started on vancomycin and Zosyn. He is currently on Oxymizer. I am seeing him at the bedside. He denies any headache, blurry vision. He does complain of shortness of breath. PAST MEDICAL HISTORY As described above. SOCIAL HISTORY Nonsmoker. No alcohol. No drug abuse. FAMILY HISTORY Noncontributory ALLERGIES Reviewed. CURRENT MEDICATIONS As per AUG. Have been reviewed. REVIEW OF SYSTEMS Positive pallor. No edema No cyanosis or jaundice. PHYSICAL EXAMINATION VITALS: Current temperature 98, pulse 77, respiratory rate 23, blood pressure 117/53. HEENT: Pupils equally round and reactive to light and accommodation. NECK: Supple. No jugular venous distension. CHEST: Bilateral air entry. Bilateral mild rhonchi. ABDOMEN: Nontender. Soft. Bowel sounds positive. NEUROLOGIC: Awake, alert and oriented. No neurologic deficits. DIAGNOSTIC STUDIES Unit #: [id number] #: [id number] Patient: TENA UGALDE IMAGING: Chest x-ray on admission showed bilateral pulmonary edema. LABORATORY: Reviewed. INR is 2.8. White blood cell count 5, hemoglobin 12, hematocrit 37, platelets 138. ASSESSMENT 1. Acute hypoxic respiration failure. 2. Aspiration pneumonitis. 3. Likely congestive heart failure with exacerbation. 4. Chronic anticoagulation. PLAN At this point the plan is to continue oxygen, bronchodilator, get a BMP, diurese the patient, noncontrast CT of the chest. We will continue to monitor in the intensive care unit. Antibiotics as per primary team. Please see orders for detailed plan Will need BiPAP support at night and p.r.n. Thank you very much for this consultation. Will continue to follow the patient. Dictated by... Kem Zuniga TD: 01/29/2017 14:17 JOB #: [id number] CONSULTATION REPORT Page 1 of 1 X Mata Patel MD X CONSULTATION REPORT
--- NOTE | ~2017-01-29 | CR72 ---
[facility] A Service of [facility] & [facility] RADIOLOGY TEXT RESULTS PATIENT: TENA UGALDE LOCATION: [facility] 564-01 : [birth year] UNIT #: [id number] AGE: [address]: Adam Cooper MD SEX: M ORDER DR: [id number] [facility] [address] [place], [place] [address] [id number] I MR#: [id number] Acc #: [id number] NAME: TENA UGALDE. : 1930 SEX: M STUDY DATE/TIME: 02/06/2017 5:37 UNIT: [facility] ROOM: [facility] STUDY DESCRIPTION: CR Chest Single View Portable Attending Physician: Adam Cooper M.D. Ordering Physician: Mata Patel M.D. Primary Care Physician: Merlin Dotson M.D. MEDICAL IMAGING REPORT This report is preliminary unless electronic signature is present EXAM Portable chest INDICATIONS Shortness of air for the past 8 days PROCEDURE Frontal view of the chest COMPARISON 02/02/2017 FINDINGS Stable cardiomegaly and persistent left basilar opacity and/or fluid. Diffuse interstitial and alveolar prominence in both lungs is stable. No visible pneumothorax. IMPRESSION Stable chest Dictated by... Terrance Hirsch M.D. THIS IS AN ELECTRONICALLY VERIFIED REPORT Terrance Hirsch M.D. at 02/07/2017 10:04 PM EED/to TD: 02/06/2017 14:28 JOB #: [id number] MEDICAL IMAGING REPORT Page 1 of 1 COPY
--- NOTE | ~2017-01-29 | CR72 ---
[facility] A Service of [facility] & [facility] RADIOLOGY TEXT RESULTS PATIENT: TENA UGALDE LOCATION: [facility] 564-01 : [birth year] UNIT #: [id number] AGE: [address]: Adam Cooper MD SEX: M ORDER DR: [id number] [facility] [address] [place], [place] [address] [id number] I MR#: [id number] Acc #: [id number] NAME: TENA UGALDE. : 1930 SEX: M STUDY DATE/TIME: 01/29/2017 5:02 UNIT: [facility] ROOM: [facility] STUDY DESCRIPTION: CR Chest Single View Portable Attending Physician: Adam Cooper M.D. Ordering Physician: Tigist Healy M.D. Primary Care Physician: Merlin Dotson M.D. MEDICAL IMAGING REPORT This report is preliminary unless electronic signature is present EXAM Portable chest HISTORY Shortness of air, cough and fever for 3 days. FINDINGS Moderate infiltrate in the right mid lung has developed since 01/25/2017. Slight interval increase in infiltrate or atelectasis in the retrocardiac left lower lobe. Stable cardiac enlargement. Pulmonary vascularity is within normal limits. Dictated by... Ceasar Fernando M.D. THIS IS AN ELECTRONICALLY VERIFIED REPORT Ceasar Fernando M.D. at 01/30/2017 6:33 AM DFL/josesitor TD: 01/30/2017 05:54 JOB #: [id number] MEDICAL IMAGING REPORT Page 1 of 1 COPY
--- NOTE | ~2017-01-29 | CR72 ---
[facility] A Service of [facility] & [facility] RADIOLOGY TEXT RESULTS PATIENT: TENA UGALDE LOCATION: [facility] [place] [facility] 564-01 : [birth year] UNIT #: [id number] AGE: [address]: Adam Cooper MD SEX: M ORDER DR: [id number] [facility] [address] [place], [place] [address] [id number] I MR#: [id number] Acc #: [id number] NAME: TENA UGALDE : 1930 SEX: M STUDY DATE/TIME: 02/02/2017 4:56 UNIT: [facility] [place] [facility] ROOM: [facility] STUDY DESCRIPTION: CR Chest Single View Portable Attending Physician: Adam Cooper M.D. Ordering Physician: Mike Zepeda M.D. Primary Care Physician: Merlin Dotson M.D. MEDICAL IMAGING REPORT This report is preliminary unless electronic signature is present EXAM Portable chest HISTORY Shortness of air, pneumonia and CHF for 4 days. FINDINGS Compared to yesterday there has been no significant change. Persistent extensive bilateral primarily interstitial infiltrates and stable consolidation or atelectasis in the left base. Probable minimal pleural effusions. Cardiac and mediastinal contours are normal. Dictated by... Ceasar Fernando M.D. THIS IS AN ELECTRONICALLY VERIFIED REPORT Ceasar Fernando M.D. at 02/02/2017 10:07 PM NILA/jorge l TD: 02/02/2017 08:12 JOB #: [id number] MEDICAL IMAGING REPORT Page 1 of 1 COPY
--- NOTE | ~2017-01-29 | CT71 ---
[facility] A Service of [facility] RADIOLOGY TEXT RESULTS PATIENT: TENA UGALDE LOCATION: [facility] 564-01 : [birth year] UNIT #: [id number] AGE: [address]: Adam Cooper MD SEX: M ORDER DR: [id number] [facility] [address] [facility]. [place], [place] [address] [id number] I MR#: [id number] #: [id number] NAME: TENA UGALDE. : 1930 SEX: M STUDY DATE/TIME: 01/29/2017 5:20 UNIT: [facility] ROOM: [facility] STUDY DESCRIPTION: CT Head Wo Contrast Attending Physician: Adam Cooper M.D. Ordering Physician: Tigist Healy M.D. Primary Care Physician: Merlin Dotson M.D. MEDICAL IMAGING REPORT This report is preliminary unless electronic signature is present EXAM CT brain without contrast HISTORY Confusion today. TECHNIQUE This CT exam was performed with one or more of the following radiation dose reduction techniques: Automatic exposure control, adjustment of mA and/or kV according to patient size, and iterative reconstruction. FINDINGS CT brain without contrast demonstrates no intracranial hemorrhage, mass, or edema. Chronic infarct in the superior parasagittal right frontal lobe with compensatory dilatation of the adjacent right lateral ventricle. Tgfo-[id number] chronic ischemic changes in the deep white matter bilaterally. IMPRESSION 1. No acute findings. 2. Chronic infarct in the superior parasagittal right frontal lobe with compensatory dilatation of the adjacent right lateral ventricle is unchanged compared to 01/20/2015. Dictated by... Ceasar Fernando M.D. THIS IS AN ELECTRONICALLY VERIFIED REPORT Ceasar Fernando M.D. at 01/31/2017 4:42 AM DFL/[place] TD: 01/30/2017 07:45 [facility] A Service [facility] RADIOLOGY TEXT RESULTS PATIENT: TENA UGALDE LOCATION: [facility] 564-01 : [birth year] UNIT #: [id number] AGE: [address]: Adam Cooper MD SEX: M ORDER DR: JOB #: [id number] MEDICAL IMAGING REPORT Page 1 of 1 COPY
--- NOTE | ~2017-01-29 | EKG ---
PATIENT: TENA UGALDE UNIT #: [id number] Ventricular Rate: 146 BPM Atrial Rate: 146 BPM QRS Duration: 122 ms Q-T Interval: 324 ms QTC Calculation(Bezet): 504 ms Calculated R [place]: 28 degrees Calculated T [place]: -43 degrees Diagnosis Line: Atrial fibrillation with rapid ventricular Diagnosis Line: response Diagnosis Line: Right bundle branch block Diagnosis Line: T wave abnormality, consider inferior ischemia or Diagnosis Line: digitalis effect Diagnosis Line: Abnormal ECG Diagnosis Line: No previous ECGs available Diagnosis Line: Confirmed by JASMYNE PINK MD ([id number]) on 02/02/2017 Diagnosis Line: 7:10:52 PM INTERPRETING MD: JOESPH ESPARZA
--- NOTE | ~2017-01-29 | HP ---
Unit #: [id number] #: [id number] Patient: TENA UGALDE [id number] [address] [address] [id number] I MR#: [id number] NAME: TENA UGALDE. ROOM: [facility] Age: 86 Sex: M Admission Date: 01/29/2017 : 1930 Attending Physician: Adam Cooper M.D. Primary Care Physician: Merlin Dotson M.D. HISTORY AND PHYSICAL HISTORY OF PRESENT ILLNESS The patient is an 86-year-old man with a past medical history significant for hypertension, hyperlipidemia, coronary artery disease, congestive heart failure, and DVT on chronic anticoagulation with Coumadin, as well as, a recent distal tib/fib fracture and underwent closed reduction. The patient presents from subacute rehab facility where he was getting physical therapy. The patient developed shortness of breath and a productive cough, and the patient was transferred to the hospital for further evaluation and management. PAST MEDICAL HISTORY 1. Rhabdomyolysis and fall in January 2016. 2. Cerebrovascular accident with residual left-sided weakness. 3. Congestive heart failure. 4. Coronary artery disease. 5. Hypertension. 6. Hyperlipidemia. 7. DVT. 8. Chronic anticoagulation with Coumadin. 9. Hypothyroidism. 10. Abdominal aortic aneurysm, status post repair. 11. Peripheral vascular disease, status post lower extremity bypass. PAST SURGICAL HISTORY 1. Cardiac catheterization in 2011. 2. Lower extremity bypass. 3. Abdominal aortic aneurysm repair. 4. Hemorrhoid surgery. 5. Cataract surgery. 6. Bilateral inguinal hernia repair. SOCIAL HISTORY There is no tobacco or alcohol use. CODE STATUS Do not resuscitate. ALLERGIES Penicillin, iodine, and IV dye. HOME MEDICATIONS 1. Lasix. 2. Potassium. 3. Coumadin. Unit #: [id number] #: [id number] Patient: TENA UGALDE 4. Carvedilol. 5. Wellbutrin. 6. Imdur. 7. Levothyroxine. 8. Lipitor. 9. Colace. REVIEW OF SYSTEMS Positive for productive cough, resolution of shortness of breath. Rest of 12-point review of systems negative. PHYSICAL EXAMINATION VITAL SIGNS: Blood pressure 136/74, heart rate 80 per minute, O2 saturation 95% on nasal cannula 2 L, temperature 98.5. GENERAL: Elderly man, awake, alert. HEENT: Normocephalic. Oropharynx is clear. NECK: Supple. Trachea midline. CARDIOVASCULAR: Regular rate and rhythm. LUNGS: Bilateral air entry with scattered rales over the right side and scattered rhonchi. ABDOMEN: Soft, nontender, nondistended. EXTREMITIES: Left leg in the cast. No cyanosis. NEUROLOGIC: No acute focal deficits. DIAGNOSTIC STUDIES LABORATORY: Blood gas: A pH 7.48, pCO2 of 33.5, pO2 of 68, O2 saturation 92.4%. Potassium 3.3. Lactic acid 1.4, in normal range. INR 2.8, therapeutic. IMAGING: Chest x-ray: Increased right-side infiltrate. ASSESSMENT AND PLAN 1. Aspiration pneumonia: Plan is to order empiric IV broad-spectrum antibiotics. Order pulmonary consult. Order infectious disease consult. Order nebulized bronchodilators for relief of shortness of air. Continue supplemental oxygen. Order video swallow evaluation to evaluate for silent aspiration. Order speech evaluation. 2. Hypokalemia: Order potassium replacement protocol. Chronic anticoagulation. Continue Coumadin, INR therapeutic. 3. Congestive heart failure, cardiomyopathy: Order echocardiogram. Continue Coreg. Continue Lasix. 4. Depression: Continue Wellbutrin. 5. Left leg tibia/fibula fracture in cast: Nonweightbearing. Order physical therapy evaluation. Dictated by Kem Wright/dayanna TD: 01/29/2017 13:29 JOB #: [id number] Unit #: [id number] #: [id number] Patient: TENA UGALDE HISTORY AND PHYSICAL Page 1 of 1 X X HISTORY AND PHYSICAL
--- NOTE | ~2017-01-29 | CT57 ---
[facility] A Service of [facility] RADIOLOGY TEXT RESULTS PATIENT: TENA UGALDE LOCATION: [facility] 5601 : [birth year] UNIT #: [id number] AGE: [address]: Adam Cooper MD SEX: M ORDER DR: [id number] [facility] [address] [place], [place] [address] [id number] I MR#: [id number] Acc #: [id number] NAME: TENA UGALDE : 1930 SEX: M STUDY DATE/TIME: 01/29/2017 16:04 UNIT: [facility] ROOM: 4 STUDY DESCRIPTION: CT Chest Wo Cont Attending Physician: Adam Cooper M.D. Ordering Physician: Mata Patel M.D. Primary Care Physician: Merlin Dotson M.D. MEDICAL IMAGING REPORT This report is preliminary unless electronic signature is present EXAM CT chest without contrast, 01/29/2017. HISTORY 86-year-old male with shortness of air and productive cough for [address] chest, 01/10/2016. TECHNIQUE Helical scan performed through the chest without IV contrast. Coronal and sagittal reformatted images. This CT exam was performed with one or more of the following radiation dose reduction techniques: automatic exposure control, adjustment of mA and/or kV according to patient size, and iterative reconstruction. FINDINGS Thoracic aorta normal in course and caliber with extensive atherosclerotic calcification. Cardiomegaly is again noted and stable. No pericardial effusion. Coronary artery calcifications. There is prominence of the pulmonary arteries which could suggest underlying pulmonary arterial hypertension. Trace bilateral pleural effusions. No pneumothorax. There is background emphysema and fibrosis noted throughout both lungs. There are increasing infiltrates in the mid and lower lung flanagan bilaterally, concerning for superimposed pneumonia. Scanning through the upper abdomen is unremarkable. No acute bony abnormality. IMPRESSION [facility] A Service of [facility] RADIOLOGY TEXT RESULTS PATIENT: TENA UGALDE LOCATION: [facility] 564 : [birth year] UNIT #: [id number] AGE: [address]: Adam Cooper MD SEX: M ORDER DR: 1. Diffuse emphysematous and fibrotic changes throughout both lungs with increasing infiltrates in the mid and lower lung flanagan bilaterally, concerning for superimposed pneumonia. Follow up to resolution recommended. 2. Trace bilateral pleural effusions. 3. Stable cardiomegaly with extensive coronary artery calcifications. 4. Prominence of the main pulmonary arteries which could suggest underlying pulmonary arterial hypertension. Dictated by... Iban Gallo M.D. THIS IS AN ELECTRONICALLY VERIFIED REPORT Iban Gallo M.D. at 01/31/2017 10:48 AM DINAH/catalina TD: 01/30/2017 18:59 JOB #: [id number] MEDICAL IMAGING REPORT Page 1 of 1 COPY
--- NOTE | ~2017-01-29 | A ---
[facility] Nutrition Therapy DATE: 02/08/17 Patient: TENA UGALDE Physician: SHA Address: [address] [place] [address] Room/Bed: [address] [place] [address], Zip: [place] [address] Admit Date: 01/29/17 Date of : [birth year] Height: 6 1 Weight: 242 110 NUTRITIONAL ASSESSMENT: REASON: PT SEEN FOR LOS ASSESSMENT PT HAS BEEN PLACED ON COMFORT MEASURES ONLY. PLANS IN PLACE FOR PT TO D/C W/HOSPICE. RD TO REMAIN AVAILABLE UPON REQUEST. Respectfully, Yue Parks RD, LD [facility] cc: client file
--- NOTE | ~2017-01-29 | DS ---
Unit #: [id number] #: [id number] Patient: TENA UGALDE [id number] [address] [address] [id number] I MR#: [id number] NAME: TENA UGALDE. ROOM: 564 Age: 86 Sex: M Admission Date: 01/29/2017 : 1930 Discharge Date: 02/04/2017 Attending Physician: Adam Cooper M.D. Primary Care Physician: Merlin Dotson M.D. DISCHARGE SUMMARY DISCHARGE DIAGNOSES 1. Aspiration pneumonia. 2. Acute hypoxic respiratory failure. 3. Acute on chronic systolic heart failure. 4. Hypertension. 5. Hemiplegia, status post stroke. HOSPITAL COURSE The patient is an 86-year-old male who presented from subacute rehab on 01/29/17 secondary to shortness of breath. Patient had just been discharged to rehab on 01/26/17 after a closed reduction of left distal tib/fib fractures. Chest x-ray upon presentation revealed infiltrate in the right mid lung and left lower lobe. As a result, the patient was started on IV antibiotics. The patient's oxygen requirement steadily increased. Initially, he was requiring 8 L per Oxymizer to maintain sats greater than 90%. However, by hospital day 1 he was requiring 11 L then 15 L and then on hospital day 2 the patient's oxygen saturations deteriorated such that he required BiPAP. The patient's antibiotic activity spectrum was increased in response to his worsening respiratory failure. The patient underwent a 2D echo which revealed ejection fraction of 40-45% and the patient did have a BNP of 656 on admission. At this time, the patient has been aggressively diuresed and has actually began to show signs of a contraction alkalosis. Patient's Bumex has been stopped and gentle hydration begun. Patient has been weaned off of the BiPAP and now remains on heated high flow at 60 L per minute. The plan is discharge to [facility] when oxygen requirements are 40 L per minute or less. This plan has been discussed with family. Dictated by... Adam Cooper M.D. ANTONI/juanita Unit #: [id number] #: [id number] Patient: TENA UGALDE TD: 02/07/2017 15:00 JOB #: [id number] DISCHARGE SUMMARY Page 1 of 1 X Adam Cooper MD X DISCHARGE SUMMARY
[~2017-01-29 04:44] MED LIST changes: +COUMADIN PO
[2017-01-29 04:58] LABS: ARTERIAL BLD GAS O2 SATURATION 92.4 % (90.0-100.0); ARTERIAL BLOOD GAS CARBOXY HB 1.8 %sat (0.0-9.0); ARTERIAL BLOOD GAS HCO3 25.4 mmol/L; ARTERIAL BLOOD GAS MET HB 0.6 %sat (0.0-2.0); ARTERIAL BLOOD GAS PCO2 33.5 mmHg (35.0-45.0); ARTERIAL BLOOD GAS pH 7.488 (7.350-7.450)
[2017-01-29 04:59] LABS: ARTERIAL BLOOD GAS ALLEN TEST NORMAL; ARTERIAL BLOOD GAS ART SITE RIGHT RADIAL; ARTERIAL BLOOD GAS DELIVERY NASAL CANNULA; ARTERIAL DRAW? YES
[2017-01-29 05:15] LABS: POC - CKMB 2.1 ng/mL (0.0-7.9); POC - TROPONIN <0.05 ng/mL (<=0.05)
[2017-01-29 05:16] LABS: BASOPHIL% 0.2 % (0-2.5); EOSINOPHIL% 0.1 % (0.0-7.0); HEMOGLOBIN 12.2 gm/dL (13.0-16.0); LYMPHOCYTE# 0.5 X10e3 (1.0-3.5); LYMPHOCYTE% 9.1 % (17.0-45.0); MEAN CELL VOLUME 89.7 FL (83-96); MEAN CORPUSCULAR HEMOGLOBIN 29.7 PG (28-34); MEAN CORPUSCULAR HGB CONC 33.1 g/dL (30-36); MEAN PLATELET VOLUME 7.8 FL (6.5-11.5); MONOCYTE# 0.5 X10e3 (0-1.0); MONOCYTE% 10.4 % (3.0-12.0); NEUTROPHIL# 4.2 X10e3 (1.5-7.1); NEUTROPHIL% 80.2 % (40-75); PLATELET COUNT 138 X10e3 (140-420); RED BLOOD COUNT 4.13 X10e (3.90-5.60); RED CELL DISTRIBUTION WIDTH 13.9 % (11.0-15.5); WHITE BLOOD COUNT 5.2 X10e3 (4.0-10.5)
[2017-01-29 05:17] LABS: DIFF IND NO
[2017-01-29] MEDS ORDERED: ALBUTEROL2.5 MG/3 M INH (05:24)
[2017-01-29] MEDS ORDERED: B COMPLEX1 EACH PO (05:26)
[2017-01-29] MEDS ORDERED: DOCUSATE SODIU100 MG PO (05:27)
[2017-01-29] MEDS ORDERED: COREG6.25 MG PO (05:27)
[2017-01-29] MEDS ORDERED: VITAMIN D1000 UNIT PO (05:27)
[2017-01-29] MEDS ORDERED: COUMADIN7.5 MG PO (05:28)
[2017-01-29 05:30] LABS: INR 2.8; PARTIAL THROMBOPLASTIN TIME 45.6 SECONDS (23.5-31.3)
[2017-01-29] MEDS ORDERED: LASIX20 MG PO (05:30)
[2017-01-29] MEDS ORDERED: COUMADIN2.5 MG PO (05:30)
[2017-01-29] MEDS ORDERED: HYDROCODON-ACE1 EAC7 PO (05:31)
[2017-01-29] MEDS ORDERED: IMDUR PO (05:34)
[2017-01-29] MEDS ORDERED: MUCINEX1200 MG PO (05:35)
[2017-01-29] MEDS ORDERED: POTASSIUM CHLO10 ME1 PO (05:35)
[2017-01-29] MEDS ORDERED: WELLBUTRIN SR150 M1 PO (05:36)
[2017-01-29] MEDS ORDERED: HUMIBID-LA600 MG PO (05:37)
[2017-01-29] MEDS ORDERED: ISOSORBIDE DINI30 MG PO (05:37)
[2017-01-29] MEDS ORDERED: LOVENOX40 MG/0.4 INJ (05:38)
[2017-01-29 05:39] LABS: PROTHROMBIN TIME (PATIENT) 30.8 SECONDS (10.0-11.7)
[2017-01-29 05:50] LABS: ALBUMIN SERUM 2.9 g/dL (3.5-5.0); BILIRUBIN, DIRECT 0.3 mg/dL (0.0-0.2); BILIRUBIN,INDIRECT 1.1 mg/dL (0.0-0.9); BILIRUBIN,TOTAL 1.4 mg/dL (0.2-2.0); BUN/CREATININE RATIO 25.55; CALCIUM SERUM 8.2 mg/dL (8.4-10.2); CREATININE SERUM 0.9 mg/dL (0.6-1.4); GLOM FILT RATE Estimated 76.5 mL/min (>60); POTASSIUM 3.3 mmol/L (3.5-5.1); PROTEIN TOTAL SERUM 6.5 g/dL (6.0-8.3)
[2017-01-29 06:53] LABS: URINE SOURCE CLEAN CATCH
[2017-01-29 07:02] LABS: URINE APPEARANCE CLEAR; URINE BILIRUBIN NEG (NEG); URINE BLOOD TRACE (NEG); URINE COLOR YELLOW; URINE GLUCOSE NEG (NEG); URINE KETONE NEG (NEG); URINE LEUKOCYTE ESTERASE NEG (NEG); URINE NITRATE NEG (NEG); URINE PROTEIN 1+ (NEG); URINE SPECIFIC GRAVITY 1.024 (1.003-1.035)
[2017-01-29 07:05] LABS: URINE BACTERIA AUWI NEG (NEGATIVE); URINE SQUAMOUS EPITHELIAL CELL NONE SEEN /[HPF]
[2017-01-29 07:06] LABS: CULTURE INDICATED? NO
[2017-01-30 03:42] LABS: ARTERIAL BLD GAS O2 SATURATION 93.8 % (90.0-100.0); ARTERIAL BLOOD GAS CARBOXY HB 1.2 %sat (0.0-9.0); ARTERIAL BLOOD GAS HCO3 24.4 mmol/L; ARTERIAL BLOOD GAS MET HB 0.9 %sat (0.0-2.0); ARTERIAL BLOOD GAS PCO2 36.3 mmHg (35.0-45.0); ARTERIAL BLOOD GAS pH 7.435 (7.350-7.450)
[2017-01-30 03:43] LABS: ARTERIAL BLOOD GAS ART SITE LEFT BRACHIAL; ARTERIAL BLOOD GAS DELIVERY OXYMIZER; ARTERIAL BLOOD GAS PO2 69.3 mmHg (80.0-100); ARTERIAL DRAW? YES
[2017-01-30 05:20] LABS: BASOPHIL% 0.2 % (0-2.5); HEMATOCRIT 35.4 % (38.0-50.0); HEMOGLOBIN 11.7 gm/dL (13.0-16.0); LYMPHOCYTE# 0.4 X10e3 (1.0-3.5); LYMPHOCYTE% 5.8 % (17.0-45.0); MEAN CELL VOLUME 89.8 FL (83-96); MEAN CORPUSCULAR HEMOGLOBIN 29.8 PG (28-34); MEAN CORPUSCULAR HGB CONC 33.1 g/dL (30-36); MEAN PLATELET VOLUME 7.2 FL (6.5-11.5); MONOCYTE# 0.6 X10e3 (0-1.0); MONOCYTE% 9.2 % (3.0-12.0); NEUTROPHIL# 5.5 X10e3 (1.5-7.1); NEUTROPHIL% 84.8 % (40-75); PLATELET COUNT 141 X10e3 (140-420); RED BLOOD COUNT 3.94 X10e (3.90-5.60); WHITE BLOOD COUNT 6.5 X10e3 (4.0-10.5)
[2017-01-30 05:48] LABS: INR 3.1; PROTHROMBIN TIME (PATIENT) 33.2 SECONDS (10.0-11.7)
[2017-01-30 05:55] LABS: ALBUMIN SERUM 2.7 g/dL (3.5-5.0); BILIRUBIN,TOTAL 1.2 mg/dL (0.2-2.0); CALCIUM SERUM 8.1 mg/dL (8.4-10.2); GLOM FILT RATE Estimated 67.4 mL/min (>60); PROTEIN TOTAL SERUM 6.1 g/dL (6.0-8.3)
[2017-01-30 06:41] LABS: DIFF IND NO
[2017-01-31 03:53] LABS: ARTERIAL BLD GAS O2 SATURATION 96.1 % (90.0-100.0); ARTERIAL BLOOD GAS CARBOXY HB 1.1 %sat (0.0-9.0); ARTERIAL BLOOD GAS HCO3 27.2 mmol/L; ARTERIAL BLOOD GAS MET HB 0.9 %sat (0.0-2.0); ARTERIAL BLOOD GAS PCO2 37.8 mmHg (35.0-45.0); ARTERIAL BLOOD GAS PO2 88.1 mmHg (80.0-100); ARTERIAL BLOOD GAS pH 7.466 (7.350-7.450)
[2017-01-31 03:56] LABS: ARTERIAL BLOOD GAS ART SITE LEFT BRACHIAL; ARTERIAL BLOOD GAS DELIVERY BIPAP 14/6; ARTERIAL DRAW? YES
[2017-01-31 06:21] LABS: HEMATOCRIT 36.4 % (38.0-50.0); HEMOGLOBIN 12.2 gm/dL (13.0-16.0); MEAN CELL VOLUME 89.6 FL (83-96); MEAN CORPUSCULAR HGB CONC 33.4 g/dL (30-36); MEAN PLATELET VOLUME 7.1 FL (6.5-11.5); RED BLOOD COUNT 4.06 X10e (3.90-5.60); RED CELL DISTRIBUTION WIDTH 13.9 % (11.0-15.5); WHITE BLOOD COUNT 8.4 X10e3 (4.0-10.5)
[2017-01-31 06:35] LABS: INR 3.1; PROTHROMBIN TIME (PATIENT) 33.4 SECONDS (10.0-11.7)
[2017-01-31 06:51] LABS: ALBUMIN SERUM 2.4 g/dL (3.5-5.0); BILIRUBIN,TOTAL 1.1 mg/dL (0.2-2.0); BUN/CREATININE RATIO 25.45; CALCIUM SERUM 7.9 mg/dL (8.4-10.2); CREATININE SERUM 1.1 mg/dL (0.6-1.4); GLOM FILT RATE Estimated 60.1 mL/min (>60); POTASSIUM 3.5 mmol/L (3.5-5.1); PROTEIN TOTAL SERUM 5.6 g/dL (6.0-8.3)
[2017-02-01 05:18] LABS: HEMATOCRIT 40.1 % (38.0-50.0); HEMOGLOBIN 13.1 gm/dL (13.0-16.0); MEAN CELL VOLUME 89.7 FL (83-96); MEAN CORPUSCULAR HEMOGLOBIN 29.2 PG (28-34); MEAN CORPUSCULAR HGB CONC 32.5 g/dL (30-36); MEAN PLATELET VOLUME 7.5 FL (6.5-11.5); RED BLOOD COUNT 4.47 X10e (3.90-5.60); RED CELL DISTRIBUTION WIDTH 14.3 % (11.0-15.5)
[2017-02-01 05:19] LABS: WHITE BLOOD COUNT 17.4 X10e3 (4.0-10.5)
[2017-02-01 05:35] LABS: INR 3.8
[2017-02-01 05:49] LABS: BUN/CREATININE RATIO 29.09; CALCIUM SERUM 8.4 mg/dL (8.4-10.2); CREATININE SERUM 1.1 mg/dL (0.6-1.4); GLOM FILT RATE Estimated 60.1 mL/min (>60); MAGNESIUM 2.2 mg/dL (1.6-3.0); POTASSIUM 3.4 mmol/L (3.5-5.1)
[2017-02-01 06:12] LABS: %MB 4.3 % (0.0-4.0); MB 10.6 ng/ml
[2017-02-03 06:20] LABS: HEMATOCRIT 41.2 % (38.0-50.0); HEMOGLOBIN 13.7 gm/dL (13.0-16.0); MEAN CELL VOLUME 89.9 FL (83-96); MEAN CORPUSCULAR HEMOGLOBIN 29.9 PG (28-34); MEAN CORPUSCULAR HGB CONC 33.2 g/dL (30-36); MEAN PLATELET VOLUME 7.1 FL (6.5-11.5); RED BLOOD COUNT 4.58 X10e (3.90-5.60); RED CELL DISTRIBUTION WIDTH 14.4 % (11.0-15.5); WHITE BLOOD COUNT 10.6 X10e3 (4.0-10.5)
[2017-02-04 11:57] LABS: BUN/CREATININE RATIO 41.66; CALCIUM SERUM 8.4 mg/dL (8.4-10.2); CREATININE SERUM 1.2 mg/dL (0.6-1.4); GLOM FILT RATE Estimated 54.1 mL/min (>60); POTASSIUM 3.1 mmol/L (3.5-5.1)
[2017-02-05 05:25] LABS: BASOPHIL% 0.2 % (0-2.5); HEMATOCRIT 44.2 % (38.0-50.0); HEMOGLOBIN 14.3 gm/dL (13.0-16.0); LYMPHOCYTE# 0.4 X10e3 (1.0-3.5); LYMPHOCYTE% 3.5 % (17.0-45.0); MEAN CORPUSCULAR HEMOGLOBIN 29.4 PG (28-34); MEAN CORPUSCULAR HGB CONC 32.3 g/dL (30-36); MEAN PLATELET VOLUME 7.7 FL (6.5-11.5); MONOCYTE# 0.4 X10e3 (0-1.0); MONOCYTE% 3.5 % (3.0-12.0); NEUTROPHIL# 10.9 X10e3 (1.5-7.1); NEUTROPHIL% 92.8 % (40-75); PLATELET COUNT 211 X10e3 (140-420); RED BLOOD COUNT 4.86 X10e (3.90-5.60); RED CELL DISTRIBUTION WIDTH 14.1 % (11.0-15.5); WHITE BLOOD COUNT 11.8 X10e3 (4.0-10.5)
[2017-02-05 05:28] LABS: DIFF IND NO
[2017-02-05 06:45] LABS: BUN/CREATININE RATIO 44.16; CALCIUM SERUM 8.3 mg/dL (8.4-10.2); CREATININE SERUM 1.2 mg/dL (0.6-1.4); GLOM FILT RATE Estimated 54.1 mL/min (>60); POTASSIUM 4.1 mmol/L (3.5-5.1)
[2017-02-06 08:05] LABS: HEMATOCRIT 41.7 % (38.0-50.0); HEMOGLOBIN 13.6 gm/dL (13.0-16.0); MEAN CELL VOLUME 90.5 FL (83-96); MEAN CORPUSCULAR HEMOGLOBIN 29.5 PG (28-34); MEAN CORPUSCULAR HGB CONC 32.6 g/dL (30-36); MEAN PLATELET VOLUME 7.1 FL (6.5-11.5); RED BLOOD COUNT 4.61 X10e (3.90-5.60); RED CELL DISTRIBUTION WIDTH 14.1 % (11.0-15.5); WHITE BLOOD COUNT 13.4 X10e3 (4.0-10.5)
[2017-02-06 08:33] LABS: GLOM FILT RATE Estimated 67.4 mL/min (>60)
[2017-02-07 05:45] LABS: HEMATOCRIT 43.1 % (38.0-50.0); MEAN CELL VOLUME 90.5 FL (83-96); MEAN CORPUSCULAR HEMOGLOBIN 29.3 PG (28-34); MEAN CORPUSCULAR HGB CONC 32.4 g/dL (30-36); MEAN PLATELET VOLUME 7.9 FL (6.5-11.5); RED BLOOD COUNT 4.77 X10e (3.90-5.60); RED CELL DISTRIBUTION WIDTH 13.6 % (11.0-15.5); WHITE BLOOD COUNT 14.6 X10e3 (4.0-10.5)
[2017-02-07 06:50] LABS: BUN/CREATININE RATIO 42.5; CALCIUM SERUM 8.2 mg/dL (8.4-10.2); CREATININE SERUM 0.8 mg/dL (0.6-1.4); GLOM FILT RATE Estimated 80.4 mL/min (>60); POTASSIUM 4.7 mmol/L (3.5-5.1)
== END 2017-02-08 15:43 | DRG 177 ==
LOC: CED 04:44 → C5C 06:08 → CEDOF 06:08 → CED 07:37 → CEDOF 07:37 → CICCU2 09:18 → C5C 16:15
PROVIDERS: Emergency Medicine; Family Medicine; Internal Medicine
PROC: B24BYZZ Ultrasonography of Heart with Aorta using Other Contrast (ICD-10-PCS; principal; 2017-01-29)
DX: J69.0 Pneumonitis due to inhalation of food and vomit (principal); I50.23 Acute on chronic systolic (congestive) heart failure; J96.21 Acute and chronic respiratory failure with hypoxia; I21.4 Non-ST elevation (NSTEMI) myocardial infarction; I69.954 Hemiplegia and hemiparesis following unspecified cerebrovascular disease affecting left non-dominant side; I42.9 Cardiomyopathy, unspecified; F05 Delirium due to known physiological condition; Z79.01 Long term (current) use of anticoagulants; I25.10 Atherosclerotic heart disease of native coronary artery without angina pectoris; E78.5 Hyperlipidemia, unspecified; Z86.718 Personal history of other venous thrombosis and embolism; E03.9 Hypothyroidism, unspecified; I73.9 Peripheral vascular disease, unspecified; Z98.49 Cataract extraction status, unspecified eye; Z66 Do not resuscitate; Z88.0 Allergy status to penicillin; Z91.041 Radiographic dye allergy status; E87.6 Hypokalemia; S82.202D Unspecified fracture of shaft of left tibia, subsequent encounter for closed fracture with routine healing; S82.402D Unspecified fracture of shaft of left fibula, subsequent encounter for closed fracture with routine healing; J84.112 Idiopathic pulmonary fibrosis; I11.0 Hypertensive heart disease with heart failure; F03.90 Unspecified dementia, unspecified severity, without behavioral disturbance, psychotic disturbance, mood disturbance, and anxiety; R62.7 Adult failure to thrive; Z68.37 Body mass index [BMI] 37.0-37.9, adult
CPT/HCPCS: 36415; 36600; 70450; 71010; 71250; 73590; 80048; 80053; 80076; 80200; 81003; 82308; 82550; 82553; 82803; 83605; 83735; 83880; 84132; 84484; 85025; 85027; 85610; 85730; 87040; 87070; 87205; 87493; 92526; 92610; 93005; 93306; 94640; 94660; 94760; 94761; 94762; 96361; 96365; 96366; 96368; 97110; 97116; 97163; 97166; 97530; 97535; 99285; G8978-GP; G8979-GP; G8987-GO; G8988-GO; G8996-GN; G8997-GN; J0360; J0692; J1885; J1940; J2020; J2185; J2270; J2920; J2930; J3260; J3370; J3475

== ENCOUNTER 2017-02-08 15:44 | Inpatient (IN) | payer OTHER ==
--- NOTE | ~2017-02-08 | DS ---
Unit #: [id number] #: [id number] Patient: TENA UGALDE [id number] [address] [address] [id number] I MR#: [id number] NAME: TENA UGALDE. ROOM: 564 Age: 86 Sex: M Admission Date: 02/08/2017 : 1930 Discharge Date: 02/15/2017 Attending Physician: Jose Medeiros M.D. Primary Care Physician: Merlin Dotson M.D. DISCHARGE SUMMARY TIME OF 1050 hours. REASON FOR ADMISSION End of life/comfort measures care. HISTORY OF PRESENT ILLNESS/HOSPITAL COURSE The patient is a pleasant 86-year-old male, recently admitted to [facility] for acute on chronic respiratory failure, high aspiration risk. Decision ultimately was made for the patient. The patient will be transitioned under care of Hospice Services secondary to diminished response as well as the patient appeared to be actively dying. He received routine medications through hospice. No acute events were noted. The patient ultimately on 02/15/2017 at approximately 10:50 a.m. Dictated by... Kem DelongN/royer TD: 02/17/2017 15:01 JOB #: [id number] DISCHARGE SUMMARY Page 1 of 1 X Jose Medeiros MD X DISCHARGE SUMMARY
[~2017-02-08 15:44] MED LIST changes: +ALBUTEROL2.5 MG/3 M INH; +B COMPLEX1 EACH PO; +COREG6.25 MG PO; +COUMADIN2.5 MG PO; +HUMIBID-LA600 MG PO; +HYDROCODON-ACE1 EAC7 PO; +ISOSORBIDE DINI30 MG PO; +LOVENOX40 MG/0.4 INJ; +MUCINEX1200 MG PO; +POTASSIUM CHLO10 ME1 PO; +VITAMIN D1000 UNIT PO; +WELLBUTRIN SR150 M1 PO
== END 2017-02-15 10:50 | disposition expired | DRG 189 ==
LOC: C5C 15:44
PROC: 05H333Z Insertion of Infusion Device into Right Innominate Vein, Percutaneous Approach (ICD-10-PCS; principal; 2017-02-09)
DX: J96.20 Acute and chronic respiratory failure, unspecified whether with hypoxia or hypercapnia (principal); J69.0 Pneumonitis due to inhalation of food and vomit; Z51.5 Encounter for palliative care
CPT/HCPCS: 94640; 94760; J2060; J2270